=== PATIENT | female | born 1965 | race Caucasian/White ===

== ENCOUNTER 2018-01-25 07:45 | Day surgery (SDC) | payer MEDICAID ==
[~2018-01-25 07:45] MED LIST: Lactated Ringers 1,000 ML IV SCH
[2018-01-25] MEDS ORDERED: Propofol 200 MG/20 ML SDV ONE (08:13)
[2018-01-25] MEDS ORDERED: fentaNYL 100 MCG/2 ML SDV ONE (08:13)
--- NOTE | 2018-01-25 10:18 | OR ---
PREOPERATIVE DIAGNOSIS: Screening colonoscopy. POSTOPERATIVE DIAGNOSIS: Normal colonoscopic exam. PROCEDURE PROPOSED AND PROCEDURE DONE: Total flexible colonoscopy. INDICATION: This is a 52-year-old female referred for screening colonoscopy. She denies any family history and she has no significant symptomatology. TECHNIQUE: The patient brought to the endoscopy suite and placed in the left lateral decubitus position. She was sedated per PATTERNMAKER HELPER with propofol. The flexible video colonoscope was then passed transanally and under visualization advanced to the cecum. Examination revealed normal ascending, transverse, descending, sigmoid, and rectal colon. There was no evidence of any polyps, diverticulosis, colitis, or any other abnormalities. The scope was then withdrawn. She tolerated procedure well. FINAL IMPRESSION: Normal colonoscopic exam. PLAN: The patient reassured. I felt she could wait 10 years before she needs a repeat colonoscopy. SCM: 01/25/2018 09:17:59 MODL: 01/25/2018 09:51:19 /[id number]
== END 2018-01-25 10:27 | disposition home or self-care (01) ==
LOC: VM.SDS 07:45
PROVIDERS: ATTEND Surgery
DX: Z12.11 Encounter for screening for malignant neoplasm of colon (principal); H52.4 Presbyopia; J45.30 Mild persistent asthma, uncomplicated; E66.9 Obesity, unspecified; Z68.35 Body mass index [BMI] 35.0-35.9, adult; C43.9 Malignant melanoma of skin, unspecified; Z79.899 Other long term (current) drug therapy; Z90.49 Acquired absence of other specified parts of digestive tract; Z98.41 Cataract extraction status, right eye; Z98.42 Cataract extraction status, left eye; Z96.1 Presence of intraocular lens; Z98.890 Other specified postprocedural states
CPT/HCPCS: 45378; J2704; J3010; J7120

== ENCOUNTER 2021-03-11 21:50 | Emergency (ER) | payer MEDICAID ==
[2021-03-11] MEDS ORDERED: Sodium Chloride 0.9% 10 ML Syringe FLUSH PRN (22:01)
[2021-03-11] MEDS: Sodium Chloride 0.9% 1,000 ML IV ONE ×2 (22:10→23:45)
[2021-03-11] MEDS: Ondansetron 4 MG/2 ML SDV IVPUSH ONE (22:14)
[2021-03-11 22:36] LABS: ANION GAP 17.6 mmol/L (5-15); CHLORIDE,CL 102 mmol/L (98-107); SODIUM,NA 142 mmol/L (136-145)
--- NOTE | 2021-03-11 23:19 | EDM.PDOC ---
ED HPI GENERAL MEDICAL PROBLEM - General Time Seen by Provider: 03/11/21 22:00 - Related Data Allergies Allergy/AdvReac Type Severity Reaction Status Date / Time No Known Drug Allergies Allergy Other Verified 01/25/18 08:35 environmental Allergy Sneezing Uncoded 01/25/18 08:35 Home Meds: Home Meds Albuterol [Proair HFA] 2 puff INH Q4HR PRN 10/29/13 [History] Loratadine [Claritin] 10 mg PO DAILY PRN 06/27/14 [History] Past Medical History HEENT History: Reports: Cataract Cardiovascular History: Reports: None Respiratory History: Reports: Asthma Gastrointestinal History: Reports: None Genitourinary History: Reports: None STUDIO DATA ANALYST History: Reports: None Musculoskeletal History: Reports: Other (See Below) Other Musculoskeletal History: sontusion shoulder/arm. ac joint pain Neurological History: Reports: None Psychiatric History: Reports: None Endocrine/Metabolic History: Reports: Obesity/BMI 30+, Other (See Below) Other Endocrine/Metabolic History: IFG Hematologic History: Reports: None Immunologic History: Reports: None Oncologic (Cancer) History: Reports: Malignant Melanoma Dermatologic History: Reports: None - Past Surgical History Head Surgeries/Procedures: Reports: None HEENT Surgical History: Reports: Cataract Surgery, Oral Surgery Cardiovascular Surgical History: Reports: None Respiratory Surgical History: Reports: None GI Surgical History: Reports: Cholecystectomy Female Surgical History: Reports: None Endocrine Surgical History: Reports: None Neurological Surgical History: Reports: None Musculoskeletal Surgical History: Reports: None Oncologic Surgical History: Reports: None Dermatological Surgical History: Reports: Skin Biopsy Review of Systems - Review of Systems Review Of Systems: See Below Constitutional: Reports: Weakness Ears: Reports: Dizziness Nose: Reports: No Symptoms Mouth/Throat: Reports: No Symptoms Respiratory: Reports: Cough GI/Abdominal: Reports: Nausea, Vomiting Genitourinary: Reports: No Symptoms Musculoskeletal: Reports: No Symptoms Skin: Reports: No Symptoms ED EXAM, GENERAL - Physical Exam Exam: See Below General Appearance: Alert, WD/WN, Other (Adult female, appears to not feel well) Eye Exam: Bilateral Eye: PERRL Ears: Normal External Exam, Normal Canal, Hearing Grossly Normal, Normal TMs Nose: Normal Inspection, Normal Mucosa Throat/Mouth: Normal Inspection, Normal Lips, Normal Oropharynx, Normal Voice Head: Atraumatic, Normocephalic Neck: Normal Inspection, Supple Respiratory/Chest: No Respiratory Distress, Lungs Clear, Chest Non-Tender Cardiovascular: Normal Peripheral Pulses, Regular Rate, Rhythm GI/Abdominal: Normal Bowel Sounds, Soft (Female) Exam: Deferred Rectal (Female) Exam: Deferred Back Exam: Normal Inspection Extremities: Normal Inspection, Normal Range of Motion, Normal Capillary Refill Neurological: Alert, Oriented, CN II-XII Intact, Normal Cognition, No Motor/Sensory Deficits Skin Exam: Warm, Intact, Normal Color, Diaphoretic Lymphatic: No Adenopathy Course - Vital Signs Text/Narrative:: 2199 The patient was seen by the AERIAL APPLICATOR PILOT. Labs adn Head CT was ordered. She was given IV fluids and Zofran 4 mg IVP. 2300 Labs reviewed. Note BUN=22 otherwise labs unremarkable. Head CT WO=negative. Patient les nauseated, but now complaining of frontal headache. Toradol 30mg IVP, Reglan 10mg IVP, and Benadryl 50mg IVP ordered along with another liter of NS. Patient now reports photophobia. She admits she has had a very busy schedule recently and working hours that are varying all over and that could be contributing to her sx. 0035 Resting now, reports RUDOLPH is now gone. Will discharge to home after fluids done. Differential Favors Migraine-Type Headace. Discharge instructions were given and the patient left the ER in stable condition. - Orders/Labs/Meds Orders: Active Orders 24 hr Category Date Time Status EKG Documentation Completion [RC] STAT Care 03/11/21 22:10 Active Head wo Cont [CT] Stat Exams 03/11/21 22:02 Taken UA RFX HEMANTH AND CULT IF INDIC [URIN] Stat Lab 03/11/21 22:01 Ordered Sodium Chloride 0.9% [Saline Flush] Med 03/11/21 22:01 Active 10 ml FLUSH ASDIRECTED PRN Saline Lock Insert [OM.PC] Stat Oth 03/11/21 22:01 Ordered Medication Orders Sodium Chloride (Sodium Chloride 0.9% 10 Ml Syringe) 10 ml FLUSH ASDIRECTED PRN PRN Reason: Keep Vein Open Labs: Laboratory Tests 03/11/21 03/11/21 Range/Units 22:10 22:10 WBC 10.0 (4.0-10.0) x10^3/uL RBC 4.83 (4.00-5.50) x10^6/uL Hgb 14.6 (12.0-16.0) g/dL Hct 44.0 (33.0-47.0) % MCV 91.1 (78.0-93.0) fL MCH 30.2 (26.0-32.0) pg MCHC 33.2 (32.0-36.0) g/dL RDW Coeff of Lemuel 13.2 (10.0-15.0) % Plt Count 319 (130-400) x10^3/uL Neut % (Auto) 30.0 L (50.0-80.0) % Lymph % (Auto) 54.5 H (25.0-50.0) % [place] % (Auto) 9.0 (2.0-11.0) % Eos % (Auto) 6.0 H (0.0-4.0) % Baso % (Auto) 0.5 (0.2-1.2) % Sodium 142 (136-145) mmol/L Potassium 3.6 (3.5-5.1) mmol/L Chloride 102 (98-107) mmol/L Carbon Dioxide 26 (21-32) mmol/L Anion Gap 17.6 H (5-15) mmol/L BUN 22 H (7-18) mg/dL Creatinine 0.9 (0.55-1.02) mg/dL Est Cr Clr Drug Dosing TNP Estimated GFR (MDRD) > 60 Glucose 148 H (70-99) mg/dL Calcium 10.3 H (8.5-10.1) mg/dL Corrected Calcium 10.5 H (8.5-10.1) mg/dL Magnesium 2.4 (1.8-2.4) mg/dL Total Bilirubin 0.3 (0.2-1.0) mg/dL AST 17 (15-37) U/L ALT 48 (14-59) U/L Alkaline Phosphatase 73 (46-116) U/L C-Reactive Protein 0.3 (<=0.9) mg/dL Total Protein 8.3 H (6.4-8.2) g/dL Albumin 3.7 (3.4-5.0) g/dL Globulin 4.6 Albumin/Globulin Ratio 0.80 Meds: Medications Generic Name Dose Route Start Last Admin Trade Name Carlos PRN Reason Stop Dose Admin Sodium Chloride 10 ml 03/11/21 22:01 Sodium Chloride 0.9% 10 Ml Syringe FLUSH ASDIRECTED PRN Keep Vein Open Discontinued Medications Generic Name Dose Route Start Last Admin Trade Name Carlos PRN Reason Stop Dose Admin Diphenhydramine HCl 50 mg 03/11/21 23:16 Diphenhydramine 50 Mg/Ml Sdv IVPUSH 03/11/21 23:17 ONETIME ONE Sodium Chloride 1,000 mls @ 999 mls/hr 03/11/21 22:01 Normal Saline IV 03/11/21 23:01 ONETIME ONE Sodium Chloride 1,000 mls @ 999 mls/hr 03/11/21 23:16 Normal Saline IV 03/12/21 00:16 ONETIME ONE Ketorolac Tromethamine 30 mg 03/11/21 23:15 Ketorolac 30 Mg/Ml Sdv IVPUSH 03/11/21 23:16 ONETIME ONE Metoclopramide HCl 20 mg 03/11/21 23:15 Metoclopramide 10 Mg/2 Ml Sdv IVPUSH 03/11/21 23:16 ONETIME ONE Metoclopramide HCl Confirm 03/11/21 23:40 Metoclopramide 10 Mg/2 Ml Sdv Administered 03/11/21 23:41 Dose 10 mg .ROUTE .STK-MED ONE Ondansetron HCl 4 mg 03/11/21 22:01 Ondansetron 4 Mg/2 Ml Sdv IVPUSH 03/11/21 22:02 ONETIME ONE - Radiology Interpretation Free Text/Narrative:: CT Head WO=negative (See final report) Departure - Departure Time of Disposition: 00:37 Disposition: Home, Self-Care 01 Condition: Good Clinical Impression: Headache Qualifiers: Headache type: unspecified Headache chronicity pattern: acute headache Intractability: intractable Qualified Code(s): R51.9 - Headache, unspecified - Discharge Information *PRESCRIPTION DRUG MONITORING PROGRAM REVIEWED*: No *COPY OF PRESCRIPTION DRUG MONITORING REPORT IN PATIENT DOROTHY: No Instructions: General Headache Without Cause Referrals: Sofiya Tran MD [Primary Care Provider] - Forms: ED Return to Work/School Form - My Orders Last 24 Hours: My Active Orders 03/11/21 22:01 UA RFX HEMANTH AND CULT IF INDIC [URIN] Stat Sodium Chloride 0.9% [Saline Flush] 10 ml FLUSH ASDIRECTED PRN Saline Lock Insert [OM.PC] Stat 03/11/21 22:02 Head wo Cont [CT] Stat 03/11/21 22:10 EKG Documentation Completion [RC] STAT - Assessment/Plan Last 24 Hours: My Active Orders 03/11/21 22:01 UA RFX HEMANTH AND CULT IF INDIC [URIN] Stat Sodium Chloride 0.9% [Saline Flush] 10 ml FLUSH ASDIRECTED PRN Saline Lock Insert [OM.PC] Stat 03/11/21 22:02 Head wo Cont [CT] Stat 03/11/21 22:10 EKG Documentation Completion [RC] STAT Assessment:: 1)Headache Plan: -Use ibuprofen or acetaminophen as needed for headache -Drink 1-2 liters of water every day. Getting dehydrated can make a headache worse. . Make sure you are getting regular sleep every night. -Start keeping a journal of your headache symptoms to document when your symptoms start and what relieves them. -If symptoms are not improving as expected, return to your Primary Care Provider for further care -Note written for work -Return to the ER as needed for any concerns
[2021-03-11] MEDS: Metoclopramide 10 MG/2 ML SDV ONE (23:35)
[2021-03-11] MEDS: Metoclopramide 10 MG/2 ML SDV IVPUSH ONE (23:35)
[2021-03-11] MEDS: Ketorolac 30 MG/ML SDV IVPUSH ONE (23:41)
[2021-03-11] MEDS: diphenhydrAMINE 50 MG/ML SDV IVPUSH ONE (23:43)
--- NOTE | 2021-03-12 08:39 | CT ---
[id number] CT/CT Head WO IV EXAM: CT Head WO IV CLINICAL DATA: HEADACHE COMPARISON: No previous similar exam is available for comparison. FINDINGS: There is no mass or mass effect. There is no hemorrhage or hydrocephalus. There are no extra-axial fluid collections. There are no sites of abnormal attenuation. IMPRESSION: NO PLAIN CT EVIDENCE OF ACUTE INTRACRANIAL PROCESS. Rashi Arvizu MD 03/12/21 0838 Thank you for allowing us to participate in the care of your patient.
== END 2021-03-12 01:05 | disposition home or self-care (01) ==
LOC: VM.ED 21:50
DX: R51.9 Headache, unspecified (principal); E66.9 Obesity, unspecified; Z91.048 Other nonmedicinal substance allergy status; J45.909 Unspecified asthma, uncomplicated; Z68.34 Body mass index [BMI] 34.0-34.9, adult
CPT/HCPCS: 70450; 80053; 83735; 85025; 86140; 96374; 96375; 99284; J1200; J1885; J2405; J2765; J7030; 99283

== ENCOUNTER 2022-11-13 03:05 | Observation (INO) | payer MEDICAID ==
[2022-11-13] MEDS ORDERED: Ondansetron 4 MG/2 ML SDV IVPUSH ONE (03:33)
[2022-11-13] MEDS ORDERED: Sodium Chloride 0.9% 1,000 ML IV ONE (03:34)
[2022-11-13 04:17] LABS: ANION GAP 16.5 mmol/L (5-15)
[2022-11-13 04:45] LABS: BARBITURATE SCREEN,URINE NEGATIVE (NEGATIVE); BENZODIAZEPINES SCREEN,URINE NEGATIVE (NEGATIVE); BUPRENORPHINE SCREEN,URINE NEGATIVE (NEGATIVE); METHAMPHETAMINE SCREEN, URINE NEGATIVE (NEGATIVE); THC SCREEN,URINE 50 NG/ML NEGATIVE (NEGATIVE)
[2022-11-13] MEDS ORDERED: Ketorolac 30 MG/ML SDV IVPUSH ONE (04:54)
[2022-11-13] MEDS ORDERED: Meclizine 25 MG Tab PO ONE (04:54)
[2022-11-13] MEDS ORDERED: Acetaminophen 325 MG Tab PO PRN (05:05)
[2022-11-13] MEDS ORDERED: Ondansetron 4 MG/2 ML SDV IV PRN (05:05)
[2022-11-13] MEDS ORDERED: Ondansetron 4 MG Tab.DIS PO PRN (05:05)
[2022-11-13] MEDS: Sodium Chloride 0.9% 1,000 ML IV SCH ×2 (05:45→15:49)
[2022-11-13] MEDS ORDERED: LORazepam 2 MG/ML SDV IVPUSH PRN (09:30)
[2022-11-13] MEDS ORDERED: Flumazenil 0.1 MG/ML 5 ML MDV IVPUSH PRN (09:30)
[2022-11-13] MEDS: metFORMIN 500 MG Tab PO SCH ×2 (09:43→18:30)
[2022-11-13] MEDS: Meclizine 25 MG Tab PO SCH ×3 (12:51→20:24)
[2022-11-14] MEDS: Sodium Chloride 0.9% 1,000 ML IV SCH (01:36)
[2022-11-14] MEDS: metFORMIN 500 MG Tab PO SCH (08:49)
[2022-11-14] MEDS: Meclizine 25 MG Tab PO SCH (08:50)
== END 2022-11-14 12:00 | disposition home or self-care (01) ==
LOC: VM.ED 03:05 → VM.MS 04:55
PROVIDERS: ADMIT Physician Assistant Medical; ATTEND Physician Assistant Medical
DX: R51.9 Headache, unspecified (principal); R42 Dizziness and giddiness; F41.9 Anxiety disorder, unspecified; J45.909 Unspecified asthma, uncomplicated; Z91.048 Other nonmedicinal substance allergy status; Z90.49 Acquired absence of other specified parts of digestive tract; Z98.890 Other specified postprocedural states
CPT/HCPCS: 70450; 80053; 80305-QW; 81001; 82550; 85025; 86140; 87086; 96361; 96374; 96375; 97161-GP; 99285-25; A9270-GY; G0378; J1885; J2405; J7030